=== PATIENT | female | born 1945 | race Caucasian/White ===

== ENCOUNTER 2016-10-16 13:28 | Emergency (ER) | payer MEDICARE, MEDICAID ==
[~2016-10-16] VITALS: Ht 154.9 cm; Wt 99.1 kg
[2016-10-16] VITALS (7 sets, daily range): BP systolic 149–211; BP diastolic 68–114; PULSE 92–101; RESP 12–20; O2SAT 93–99
--- NOTE | 2016-10-16 13:54 | ED.REPORT ---
HPI-Chest Pain 40 and Over Date of Service Oct 16, 2016 ED Provider: Ki Feldman DO The patient is a 71 year old female with history of hypertension, hyperlipidemia , GERD, and IBS, who presents to the emergency department complaining of chest pain that began a few days ago. The pain is like a "band" around her upper abdomen and lower chest. She describes the pain as "squeezing." She has also experienced a shortness of breath, "frothy" cough, and transient numbness to her lip and nose. The numbness is currently resolved. She has not had similar symptoms in the past. She has gained about 20 pounds in the last 1.5 months. Nursing Notes Stated Complaint: CHEST PAIN/SOB Chief Complaint: Chest Pain Nursing Notes Reviewed: Yes Allergies: Coded Allergies: Rice (Verified Allergy, Mild, 08/02/09) Latex (Verified Allergy, Unknown, 08/02/09) Uncoded Allergies: SULFA (Allergy, Mild, 08/02/09) Scheduled PRN Hydrocodone-Acetaminophen 5-325 mg (Hydrocodone-Acetaminophen 5-325 mg) 1 Each Tablet 1 TABLET PO Q4H PRN PRN For Pain General Time Seen by MD: 13:51 Chief Complaint Chest pain Hx Obtained From: Patient Arrived By: Walk-in Sudden in Onset?: Yes Onset Occurred: 2 days ago Symptom Duration: Since onset Location: : Chest left: Chest right: Epigastric Quality: Painful Radiation: : Does not radiate Migration/Movement: Reports: None Severity: Current: Moderate Severity: Maximum: Severe Recent Healthcare: No recent doctor visit, No recent hospitalization Similar Sx Previous: No Past Medical History Past Medical History Hypertension Hyperlipidemia Hypothyroidism GERD Major depression IBS Asthma Osteoarthritis Past Surgical History Hemorrhoidectomy and vaginal mesh repair Total abdominal hysterectomy with bilateral salpingo-oophorectomy Breast lumps removed Family History Noncontributory Smoking History Former Smoker Social History Alcohol Use: Denies alcohol use Drug Use: Denies drug use Other Social History: Local resident Ambulatory Status Independent Review of Systems Review of Systems Note: +weight gain Constitutional: Denies: Chills, Fever Respiratory: Reports: Prod cough, white, Shortness of breath Cardiovascular: Reports: Chest pain GI: Reports: Abdominal pain Neurologic: Reports: Numbness Complete sys rev & neg: except as marked. Physical Exam Initial Vital Signs Vital Signs (First) Date Time Temp Pulse Resp B/P Pulse Ox O2 Delivery O2 Flow Rate FiO2 10/16/16 13:31 36.3 99 20 211/114 97 Room Air Initial VS: Reviewed Head / Eyes: Atraumatic, Normocephalic, PERRL ENT: Mucous membranes moist, Conjunctiva normal, No scleral icterus Neck: Supple, Non-tender, Full range of motion Lymphatic: No lymphadenopathy Extremities: Vascular intact, Neuro intact Skin: Warm, Dry, No cyanosis Neurologic: Alert, Oriented, Nonfocal Psychiatric: Mood/affect normal, Behavior normal, Normal thought content General/Constitutional: Awake, Alert, No acute distress, Well appearing Respiratory / Chest: Breath sounds NL, Breath sounds = bilat, No respiratory distress, No rales, No rhonchi, No wheezing, No stridor, No chest wall deformity Reproducible left and right chest wall tenderness. Cardiovascular: Heart rate NL, Regular rhythm, Heart sounds NL, No murmurs, Peripheral circulation NL, Pulses = bilaterally, No gross BP differential Lower Ext Edema: Positive: Bilateral 1+ Abdomen: Soft, Non-tender, McBurney's non-tender, No guarding, No rebound, BS normoactive, No distention, No hernia, No palpable mass Interpretation & Diagnostics Lab Results Interpretation Result Diagram: 10/16/16 1415 10/16/16 1415 Test 10/16/16 14:15 White Blood Count 8.0th/mm3 (3.8-10.1) Red Blood Count 4.14mil/mm3 (3.90-5.20) Hemoglobin 12.4g/dL (12.0-15.6) Hematocrit 37.9% (35.0-46.0) Mean Corpuscular Volume 91.5fL (81-100) Mean Corpuscular Hemoglobin 30.0pg (27.0-35.0) Mean Corpuscular Hemoglobin Concent 32.7% (32.0-37.0) Red Cell Distribution Width 13.1% (12.3-15.4) Platelet Count 212bil/L (150-400) Neutrophils (%) (Auto) 57.3% (40-74) Lymphocytes (%) (Auto) 34.5% (14-46) Monocytes (%) (Auto) 5.4% (4-12) Eosinophils (%) (Auto) 2.1% (0-5) Basophils (%) (Auto) 0.4% (0-3) Prothrombin Time 10.0sec (8.1-12.5) Prothromb Time International Ratio 0.94ratio D-Dimer < 0.5mg/L (<0.50) Sodium Level 130mEq/L (134-144) Potassium Level 4.2mEq/L (3.5-5.2) Chloride Level 89mEq/L (97-108) Carbon Dioxide Level 27mmol/L (18-29) Blood Urea Nitrogen 12mg/dL (8-27) Creatinine 0.74mg/dL (0.57-1.00) Estimat Glomerular Filtration Rate 111mL/min (>59) Glucose Level 104mg/dL (60-99) Calcium Level 9.5mg/dL (8.5-10.1) Magnesium Level 2.0mg/dL (1.6-2.6) Total Bilirubin 0.4mg/dL (0.0-1.2) Aspartate Amino Transf (AST/SGOT) 16U/L (0-50) Alanine Aminotransferase (ALT/SGPT) 16U/L (0-32) Alkaline Phosphatase 65U/L (25-165) Troponin T < 0.010ug/L (0.0-0.011) Pro-B-Type Natriuretic Peptide 55.01pg/mL (0-301) Total Protein 8.0g/dL (6.4-8.4) Albumin 4.1g/dL (3.4-5.0) Hold Sandoval Top Tube Received (Received) ECG Interpretation ECG Interpretation: Sinus rhythm Nonspecific ST changes Time: 14:00 Interpreted by: ED physician X-Ray Chest Interpretation Chest Xray Interpretation: IMPRESSION: 1. Slight streaky retrocardiac opacity. This could represent atelectasis versus developing airspace disease. 2. Mild increased opacity prominence in the right hilar region. This could represent a prominent vessel or lymph node. However, this region appears more distinct when compared to prior exam. Three-month interval followup or CT chest is recommended. Dictated by: Kerry Bhardwaj M.D. on 10/16/2016 at 14:34 Interpretation / Wet Read by: Interpret - Radiologist CT Chest Interpretation IMPRESSION: 1. No evidence of aortic dissection, nor aneurysm. 2. Left adrenal adenoma. 3. New left lower lobe pulmonary nodule; followup is recommended as below. Fleischner Society criteria for SOLID lung nodule followup. Nodule size (mm)Low-risk patientHigh-risk [id number] follow-up neededFollow-up at 12 mo; if no change, no further follow-up>[id number] CT at 12 mo; if no change, no further follow-up needed.Initial follow-up CT at 6-12 mo, then 18-24 mo if no change. >6-8Initial follow-up CT at 6-12 mo, then 18-24 mo if no change. Initial follow-up CT at 3-6 mo, then 9-12 mo and 24 mo if no change. >8Follow-up CT at 3, 9, 24 mo. Or PET and/or biopsy.Same as for low-risk pts. Dictated by: Reba Connolly M.D. on 10/16/2016 at 16:24 Study type: CT pulm angiogram Interpretation / Wet Read by: Interpret - Radiologist Re-Eval/Medical Decision Med Decision/Clinical Course Patient is focally tender in the lower rib cage, EKG, troponin are negative and unremarkable after several days of constant ongoing pain. Seems the pain is worse with direct palpation and movement. CT of the chest is negative for obvious pulmonary embolism or aortic dissection. Incidentally there is a lung nodule which the patient is made aware of. Patient will be discharged with [facility]. It does not seem that this is acute coronary syndrome. She will follow-up with her PCP for further evaluation and return to the ER as needed for worsening symptoms. Source of Hx: Old records Time of Eval: 15:23 Re-Evaluation/Progress Note: Rechecked the patient. Her pain has not improved with nitroglycerin. Time of Eval: 16:34 Re-Evaluation/Progress Note: Rechecked the patient. Her symptoms have improved but she does still complains of chest heaviness. Discussed results, diagnosis, and plan for discharge. All questions were addressed. Counseled Regarding: Diagnosis, Lab results, Need for follow-up, When/why to return to ED Discharge & Departure Primary Impression: Chest pain Chest pain type: unspecified Qualified Code: R07.9 - Chest pain, unspecified Additional Impression: Lung nodule Disposition: Home Discharge Condition All VS Reviewed: Yes Condition: Stable Additional Instructions: Thank you for entrusting us with your care today. You chest x-ray, chest CT, labs, and EKG today are reassuring. There is no evidence of an aortic aneurysm or dissection, pneumonia, blood clot, or heart attack. Your chest CT did show a lung nodule on the left. You can discuss further evaluation of this with your primary care provider. You can use [facility] as needed for severe pain. Call your regular doctor tomorrow to schedule a close followup appointment. You should discuss the option of having an outpatient stress test with your doctor. Make sure that you are taking at least 81 mg aspirin daily. Return to the emergency department if you develop increased pain, difficulty breathing, fever, chills, vomiting, weakness, dizziness, or any other new or concerning symptoms. Referrals: Reji Cardona MD (PCP) Scribe Attestation Portions of this note were transcribed by Philly Gonzalez. I, Dr. Feldman personally performed the history, physical exam and medical decision-making; I reviewed and confirmed the accuracy of the information in the transcribed note. Signed by: Daryl Fregoso, 10/16/2016 and 3091. copies to: Reji Cardona MD, Timothy S DO Oct 16, 2016 13:54 Philly Gonzalez Oct 16, 2016 14:09
[2016-10-16 14:24] LABS: BASOPHILS % (AUTO) 0.4 % (0-3); EOSINOPHILS % (AUTO) 2.1 % (0-5); MONOCYTES % (AUTO) 5.4 % (4-12); Mean Corpuscular Volume 91.5 fL (81-100); NEUTROPHILS % (AUTO) 57.3 % (40-74); Platelet Count 212 bil/L (150-400)
[2016-10-16] MEDS ORDERED: Ondansetron 2 mg/mL 2 mL Inj IVPUSH PRN (14:30)
[2016-10-16] MEDS ORDERED: Nitroglycerin 2% 1 Gm Ointment TOPICAL ONE (14:30)
--- NOTE | 2016-10-16 14:36 | DRSVH ---
PROCEDURE: X-RAY CHEST ONE VIEW, PORTABLE ([id number]) INDICATIONS: sob TECHNIQUE: One view of the chest was acquired. COMPARISON: [facility], CR, CHEST 2VW, 09/23/2014, 8:16. [facility], CR, CHEST 2VW, 03/30/2015, 9:15. [facility], CR, CHEST 2VW, 05/29/2008, 13:40. FINDINGS: Surgical changes and devices: None. Lungs and pleura: Slight appearance of streaky retrocardiac opacity. There is mild prominence within the right hilar region. Mediastinum: Mediastinal contours appear normal. Heart size is normal. Bones and chest wall: No suspicious bony lesions. Overlying soft tissues appear unremarkable. IMPRESSION: 1. Slight streaky retrocardiac opacity. This could represent atelectasis versus developing airspace d isease. 2. Mild increased opacity prominence in the right hilar region. This could represent a prominent vess el or lymph node. However, this region appears more distinct when compared to prior exam. Three-month interval followup or CT chest is recommended. Dictated by: Kerry Bhardwaj M.D. on 10/16/2016 at 14:34 Approved by: Kerry Bhardwaj M.D. on 10/16/2016 at 14:34
[2016-10-16 14:38] LABS: INR 0.94 ratio
[2016-10-16 15:11] LABS: TROPONIN T < 0.010 ug/L (0.0-0.011)
--- NOTE | 2016-10-16 16:27 | DRSVH ---
PROCEDURE: CT ANG CHEST/ABD W/WO CONTRAST ([id number]) INDICATIONS: chest pain, epigastric pain, hypertension TECHNIQUE: Precontrast 5 mm thick sections acquired from the lung apices to the iliac crests. After the adminis tration of intravenous contrast, 3 mm thick sections again acquired from the lung apices to the iliac crests. 3-dimensional maximum intensity projection (MIP) oblique sagittal and coronal reformats wer e then acquired, and/or 3-dimensional volume rendering reformats. For radiation dose reduction, the following was used: automated exposure control. COMPARISON: [facility], CT, ABD/PELVIS W/CON (PNL), 05/25/2009, 17:12. FINDINGS: Image quality: Excellent. AORTA: Mild diffuse aortic plaque. No evidence of aneurysm, nor dissection. No significant aortic stenosis. CHEST: Lungs and pleura: No acute airspace opacities. Left basilar scarring is present. 3 mm diameter subp leural nodule within the left lower lobe posteriorly is present, new since the prior examination. No pleural effusions or pneumothorax. Central and peripheral airways are patent and normal in caliber. Mediastinum: Heart size is normal. No pericardial effusion. No mediastinal or hilar adenopathy by size criteria. Central pulmonary arteries are normal in size. Esophagus is normal in caliber. No h iatal hernias. Bones and chest wall: No axillary adenopathy by size criteria. Thyroid gland is not seen. No suspi cious bony lesions. No vertebral body compression fractures. ABDOMEN: Vasculature: Celiac trunk and mesenteric arteries are patent. Renal arteries are also patent. Solid organs: Liver and spleen are normal in size. Gallbladder is within normal limits. Biliary sy stem is non dilated. Pancreas enhances normally. Mild right adrenal thickening. 14 mm diameter left adrenal nodule, with Hounsfield units of 0.2 prior to intravenous contrast administration. Both kidne ys are normal in size and enhancement, without hydronephrosis. Peritoneum and bowel: No free fluid or air. Bowel loops are normal in caliber and wall thickness. Nodes and vessels: No retroperitoneal or mesenteric adenopathy by size criteria. Inferior vena cava is normal in morphology. Bones: No suspicious bony lesions. No vertebral body compression fractures. Miscellaneous: No ventral hernias. IMPRESSION: 1. No evidence of aortic dissection, nor aneurysm. 2. Left adrenal adenoma. 3. New left lower lobe pulmonary nodule; followup is recommended as below. Isabellaner Society criteria for SOLID lung nodule followup. Nodule size (mm)Low-risk patientHigh-risk [id number] follow-up neededFollow-up at 12 mo; if no delacruz e, no further follow-up>[id number] CT at 12 mo; if no change, no further follow-up needed.Initial f ollow-up CT at 6-12 mo, then 18-24 mo if no change. >6-8Initial follow-up CT at 6-12 mo, then 18-24 mo if no change. Initial follow-up CT at 3-6 mo, then 9-12 mo and 24 mo if no change. >8Follow-up CT at 3, 9, 24 mo. Or PET and/or biopsy.Same as for low-risk pts. Dictated by: Reba Connolly M.D. on 10/16/2016 at 16:24 Approved by: Reba Connolly M.D. on 10/16/2016 at 16:24
[2016-10-16] MEDS ORDERED: HYDR-4003 PO (16:41)
== END 2016-10-16 16:51 | disposition home or self-care (01) ==
LOC: SED 13:28
DX: R07.9 Chest pain, unspecified (principal); R91.1 Solitary pulmonary nodule; I10 Essential (primary) hypertension; K21.9 Gastro-esophageal reflux disease without esophagitis; E78.5 Hyperlipidemia, unspecified; Z87.891 Personal history of nicotine dependence; Z91.040 Latex allergy status; Z88.2 Allergy status to sulfonamides; Z91.018 Allergy to other foods
CPT/HCPCS: 36415; 71010; 71275; 74175; 80053; 82948; 83735; 83880; 84484; 85025; 85379; 85610; 93005; 96374; 96375; 99285; J2270; J2405; Q9967

== ENCOUNTER 2017-02-13 17:38 | Emergency (ER) | payer MEDICARE, MEDICAID ==
[~2017-02-13] VITALS: Ht 154.9 cm; Wt 100.0 kg
[~2017-02-13 17:38] MED LIST: HYDR-4003 PO
[2017-02-13 17:42] VITALS: BP 173/86; PULSE 86; RESP 16; O2SAT 97
--- NOTE | 2017-02-13 18:15 | ED.REPORT ---
HPI-Chest Pain 40 and Over Date of Service February 13, 2017 ED Provider: Mika Culver MD Patient is a 71 year old female with a history of GERRI, hypertension, fibromyalgia and diabetes who presents to the ED complaining of chest pain onset 1530 today. Associated symptoms include bilateral leg swelling and right arm swelling. She denies dyspnea on inhalation, nausea or vomiting. The patient reports that she has felt similar chest pain before and describes it as a tightness. She states she has not experienced swelling in her extremities before. Patient is not currently taking ASA. Nursing Notes Stated Complaint: CHEST PAIN, BILAT LEG SWELLING/FROM URGENT CARE Chief Complaint: Chest Pain Nursing Notes Reviewed: Yes Allergies: Coded Allergies: ibuprofen (Verified Allergy, Intermediate, 02/13/17) rice (Verified Allergy, Mild, 08/02/09) latex (Verified Allergy, Unknown, 08/02/09) Uncoded Allergies: SULFA (Allergy, Mild, 08/02/09) Scheduled PRN Hydrocodone-Acetaminophen 5-325 mg (Hydrocodone-Acetaminophen 5-325 mg) 1 Each Tablet 1 TABLET PO Q4H PRN PRN For Pain General Time Seen by MD: 18:14 Chief Complaint Chest pain Hx Obtained From: Patient Arrived By: Walk-in Sudden in Onset?: Yes Onset Occurred: 1 - 4 hours ago Symptom Duration: Intermittent Recent Healthcare: No recent hospitalization, Recent doctor visit Past Medical History Past Medical History GERRI Fibromyalgia Hypertension Hyperlipidemia Hypothyroidism GERD Major depression IBS Asthma Osteoarthritis Past Surgical History Hemorrhoidectomy and vaginal mesh repair Total abdominal hysterectomy with bilateral salpingo-oophorectomy Breast lumps removed Family History Noncontributory Smoking History Former Smoker Social History Alcohol Use: Denies alcohol use Drug Use: Denies drug use Other Social History: Good social support, Local resident Ambulatory Status Independent Review of Systems Respiratory: Denies: Non-productive cough, Shortness of breath Cardiovascular: Reports: Chest pain, Denies: Dyspnea on exertion GI: Denies: Nausea, Vomiting Musculoskeletal: Reports: Extremity swelling (both legs and right arm) Complete sys rev & neg: except as marked. Physical Exam Initial Vital Signs Vital Signs (First) Date Time Temp Pulse Resp B/P Pulse Ox O2 Delivery O2 Flow Rate FiO2 02/13/17 17:42 37.4 86 16 173/86 97 Room Air Initial VS: Reviewed General/Constitutional: Awake, Alert, No acute distress Respiratory / Chest: Atraumatic, Breath sounds NL, Breath sounds = bilat, No respiratory distress Cardiovascular: Heart rate NL, Regular rhythm, Heart sounds NL, No murmurs Abdomen: Atraumatic, Soft, Non-tender Lower Extremity / Pelvis / MS: Atraumatic, Neurologic intact, Vascular intact 1+ bilateral lower extremity edema Skin: Atraumatic, Color NL, No rash, Warm, Dry Neurologic: Oriented X3, Speech NL, No motor deficits, No sensory deficits Psychiatric: Affect NL, Mood NL Head / Eyes: Atraumatic, Normocephalic, PERRL, EOMI Upper Extremity / MS: Atraumatic, Full range of motion, Neurologic intact, Vascular intact, No edema Interpretation & Diagnostics Lab Results Interpretation Result Diagram: 02/13/170 02/13/17 183 Test 02/13/17 18:30 02/13/17 20:26 White Blood Count 7.7th/mm3 (3.8-10.1) Red Blood Count 3.86mil/mm3 (3.90-5.20) Hemoglobin 11.0g/dL (12.0-15.6) Hematocrit 35.0% (35.0-46.0) Mean Corpuscular Volume 90.7fL (81-100) Mean Corpuscular Hemoglobin 28.5pg (27.0-35.0) Mean Corpuscular Hemoglobin Concent 31.4% (32.0-37.0) Red Cell Distribution Width 13.6% (12.3-15.4) Platelet Count 215bil/L (150-400) Neutrophils (%) (Auto) 53.9% (40-74) Lymphocytes (%) (Auto) 35.9% (14-46) Monocytes (%) (Auto) 7.0% (4-12) Eosinophils (%) (Auto) 2.5% (0-5) Basophils (%) (Auto) 0.4% (0-3) D-Dimer < 0.50mg/L FEU (<0.50) Sodium Level 138mEq/L (134-144) Potassium Level 4.0mEq/L (3.5-5.2) Chloride Level 98mEq/L (97-108) Carbon Dioxide Level 26mmol/L (18-29) Blood Urea Nitrogen 15mg/dL (8-27) Creatinine 0.76mg/dL (0.57-1.00) Estimat Glomerular Filtration Rate 108mL/min (>59) Glucose Level 132mg/dL (60-99) Calcium Level 9.7mg/dL (8.5-10.1) Total Bilirubin 0.3mg/dL (0.0-1.2) Aspartate Amino Transf (AST/SGOT) 17U/L (0-50) Alanine Aminotransferase (ALT/SGPT) 17U/L (0-32) Alkaline Phosphatase 58U/L (25-165) Pro-B-Type Natriuretic Peptide 50.22pg/mL (0-301) Total Protein 7.6g/dL (6.4-8.4) Albumin 4.1g/dL (3.4-5.0) Troponin T < 0.010ug/L (0.0-0.011) ECG Interpretation ECG Interpretation: No ST elevation T-wave inversion in V1-V3, unchanged from previous Time: 18:26 Interpreted by: ED physician Normal ECG Interpretation: Normal rate (81), Normal sinus rhythm X-Ray Chest Interpretation Chest Xray Interpretation: IMPRESSION: No acute cardiopulmonary disease. Dictated by: Loren Garcia M.D. on 02/13/2017 at 19:08 Approved by: Loren Garcia M.D. on 02/13/2017 at 19:09 View: Portable, 1 view Interpretation / Wet Read by: Interpret - Radiologist Re-Eval/Medical Decision Med Decision/Clinical Course 71-year-old female presenting with lower extremity swelling times several weeks bilateral and left-sided chest pain. Chest pain is reproducible. Vital signs stable. Her d-dimer is negative. Her troponins are negative 2. Chest x-ray is clear. Her labs are unremarkable. Did not suspects DVT given d-dimer negative. Chest pain likely musculoskeletal given reproducible which resolved while she was here. Her BNP is normal. Her renal function is normal. Lower extremity edema unclear etiology possible venous insufficiency. Recommend she follow up with her primary doctor later this week for further evaluation. Return precautions given as a nursing chest pain, difficulty breathing, worsening leg swelling, any other new or worsening symptoms. Source of Hx: Old records Time of Eval: 21:11 Re-Evaluation/Progress Note: Left side of chest has reproducable pain. Discussed lab results and plan for discharge. The patient understands and agrees to the plan for discharge. All questions were addressed. Counseled Regarding: Diagnosis, Lab results, Need for follow-up, When/why to return to ED Discharge & Departure Primary Impression: Non-cardiac chest pain Additional Impression: Lower extremity edema Laterality: unspecified laterality Qualified Code: R60.0 - Localized edema Disposition: Home Discharge Condition All VS Reviewed: Yes Condition: Stable Patient Instructions: Chest Pain (ED) Additional Instructions: You didn't have a heart attack, you don't have any blood clots and your kidneys are fine. Follow up with your primary care physician for further care and options regarding your leg swelling. Return to the emergency department if you develop any new or worsening symptoms including difficulty breathing, chest pain or difficulty walking. Referrals: Reji Cardona MD (PCP) Daryl Attestation Portions of this note were transcribed by Sarah Campbell. I, Dr. Ирина Young personally performed the history, physical exam and medical decision-making; I reviewed and confirmed the accuracy of the information in the transcribed note. Signed by: Daryl Rausch, 02/13/17 and 2115. copies to: Reji Cardona MD, Ben M MD February 13, 2017 18:15 Emi Campbell February 13, 2017 18:27
[2017-02-13 18:52] LABS: BASOPHILS % (AUTO) 0.4 % (0-3); EOSINOPHILS % (AUTO) 2.5 % (0-5); Mean Corpuscular Hemoglobin 28.5 pg (27.0-35.0); Mean Corpuscular Volume 90.7 fL (81-100); NEUTROPHILS % (AUTO) 53.9 % (40-74); Platelet Count 215 bil/L (150-400)
--- NOTE | 2017-02-13 19:10 | DRSVH ---
PROCEDURE: X-RAY CHEST ONE VIEW, PORTABLE ([id number]) INDICATIONS: dyspnea TECHNIQUE: One view of the chest was acquired. COMPARISON: [facility], CT, CT ANGIO CHEST ABD, 10/16/2016, 15:58. [facility], CR, XR CHEST 1VW (PORTABLE), 10/16/2016, 13:54. FINDINGS: Surgical changes and devices: None. Lungs and pleura: No pleural effusions or pneumothorax. Lungs are clear. Mediastinum: Mediastinal contours appear normal. Heart size is normal. Bones and chest wall: No suspicious bony lesions. Overlying soft tissues appear unremarkable. IMPRESSION: No acute cardiopulmonary disease. Dictated by: Loren Garcia M.D. on 02/13/2017 at 19:08 Approved by: Loren Garcia M.D. on 02/13/2017 at 19:09
[2017-02-13 19:24] LABS: TROPONIN T < 0.010 ug/L (0.0-0.011)
[2017-02-13 21:29] VITALS: BP 161/87; PULSE 83; RESP 16; O2SAT 98
== END 2017-02-13 21:30 | disposition home or self-care (01) ==
LOC: SED 17:38
DX: R07.89 Other chest pain (principal); R60.0 Localized edema; I10 Essential (primary) hypertension; E78.5 Hyperlipidemia, unspecified; J45.909 Unspecified asthma, uncomplicated; K21.9 Gastro-esophageal reflux disease without esophagitis; E03.9 Hypothyroidism, unspecified; M79.7 Fibromyalgia; F32.9 Major depressive disorder, single episode, unspecified; Z87.891 Personal history of nicotine dependence; Z88.8 Allergy status to other drugs, medicaments and biological substances; Z91.018 Allergy to other foods; Z91.040 Latex allergy status